=== PATIENT | female | born 1990 | race Caucasian/White ===

== ENCOUNTER 2018-04-11 20:59 | Emergency (ER) | payer BC ==
[2018-04-11] MEDS ORDERED: Lidocaine 1%* 5 ML VIAL INJ ONE (21:26)
--- NOTE | 2018-04-11 21:36 | UC ---
UC General HPI - HPI Summary HPI Summary: Patient accidentally caught her right hand on the edge of a sharp shelf while vacuuming her closet. This occurred just prior to arrival. She denies any foreign body sensation or limited range of motion. Her tetanus shot is up-to- date, within the past 10 years. She denies any other injuries offers no other complaints. - History of Current Complaint Stated Complaint: R HAND LACERATION Time Seen by Provider: 04/11/18 21:22 Hx Obtained From: Patient Onset/Duration: Sudden Onset Timing: Constant Aggravating: Nothing Associated Signs & Symptoms: Positive: Fever - Allergy/Home Medications Allergies/Adverse Reactions: Allergies Allergy/AdvReac Type Severity Reaction Status Date / Time No Known Allergies Allergy Verified 04/11/18 21:49 PMH/Surg Hx/FS Hx/Imm Hx Previously Healthy: Yes - Family History Known Family History: Positive: None - Social History Occupation: Employed Full-time Lives: With Family Substance Use Type: None - Immunization History Most Recent Influenza Vaccination: 05/19/13 Most Recent Tetanus Shot: 06/27/13 Most Recent Pneumonia Vaccination: unknown Vaccination Up to Date: Yes Review of Systems Constitutional: Negative Skin: Other - Cut on right hand Eyes: Negative ENT: Negative Respiratory: Negative Cardiovascular: Negative Gastrointestinal: Negative Genitourinary: Negative Motor: Negative Neurovascular: Negative Musculoskeletal: Negative Neurological: Negative Psychological: Negative Is Patient Immunocompromised?: No All Other Systems Reviewed And Are Negative: Yes Physical Exam Triage Information Reviewed: Yes Appearance: Well-Appearing Vital Signs Reviewed: Yes Eyes: Positive: Conjunctiva Clear ENT: Positive: Normal ENT inspection Neck: Positive: Supple Respiratory: Positive: Lungs clear, Normal breath sounds Cardiovascular: Positive: RRR, No Murmur Abdomen Description: Positive: Nontender, No Organomegaly, Soft Bowel Sounds: Positive: Present Musculoskeletal: Positive: ROM Intact Neurological: Positive: Alert Psychological: Positive: Normal Response To Family, Age Appropriate Behavior Skin Exam: Normal, Other - 2 cm laceration right dorsal hand. Fatty tissue seen. No active bleeding. And has full sensorivascular motor function. Course/Dx - Course Course Of Treatment: Procedure: Timeout done. Wound prep with Betadine. Local with 1% lidocaine 1 mL. Wound explored for foreign body as well as tendon and ligament damage and none was identified. Site irrigated with copious amounts of sterile sodium chloride. Wound reprepped with Betadine and draped in sterile fashion. Site closed with 5-0 nylon and 2 simple plus 1 horizontal mattress stitch. There was mild venous bleeding during procedure. Bleeding stopped post procedure. Hand had full vascular and motor function post procedure. Patient tolerated well. Sterile technique was used to repair the wound. Site covered with bacitracin and sterile gauze which was held in place with a bandage. - Differential Dx - Multi-Symptom Provider Diagnoses: 2cm laceration R hand Discharge - Sign-Out/Discharge Documenting (check all that apply): Patient Departure All imaging exams completed and their final reports reviewed: No Studies - Discharge Plan Condition: Stable Disposition: HOME Patient Education Materials: Care For Your Stitches (ED) Referrals: Murali Duran, SOA ENGINEER [Primary Care Provider] - Additional Instructions: SUTURES OUT IN 7-10 DAYS. - Billing Disposition and Condition Condition: STABLE Disposition: Home
[2018-04-11 21:47] VITALS: BP 136/81
== END 2018-04-11 22:07 | disposition home or self-care (01) ==
LOC: UCCORT 20:59
DX: S61.411A Laceration without foreign body of right hand, initial encounter (principal); W26.9XXA Contact with unspecified sharp object(s), initial encounter; Y93.E3 Activity, vacuuming; Y92.89 Other specified places as the place of occurrence of the external cause
CPT/HCPCS: 12001; 99211; G0463

== ENCOUNTER 2018-04-20 07:08 | Emergency (ER) | payer BC ==
[2018-04-20 07:22] VITALS: BP 125/75
--- NOTE | 2018-04-20 07:39 | UC ---
HPI Wound/Suture Re-check - HPI Summary HPI Summary: here for suture removal from her right hand sutures were placed here 9 days ago has no complaints , wound is healing well, no redness, no swelling, no discharge, mild itching - History Of Current Complaint Chief Complaint: UCGeneralIllness Stated Complaint: STITCH REMOVAL Time Seen by Provider: 04/20/18 07:30 Hx Obtained From: Patient Hx Last Menstrual Period: 04/07/18 Onset/Duration: Sudden Onset, Lasting Days - 9, Still Present Severity: Mild Pain Intensity: 0 Procedure Type: suture removal Surgery Date: 04/11/18 - Allergies/Home Medications Allergies/Adverse Reactions: Allergies Allergy/AdvReac Type Severity Reaction Status Date / Time No Known Allergies Allergy Verified 04/20/18 07:20 Home Medications: Home Medications Multivitamin [Multivitamins] 1 tab DAILY 04/20/18 [History Confirmed 04/20/18] PMH/Surg Hx/FS Hx/Imm Hx Previously Healthy: Yes - Surgical History Surgical History: None - Family History Known Family History: Positive: None Negative: Diabetes - Social History Alcohol Use: Occasionally Substance Use Type: None Smoking Status (MU): Never Smoked Tobacco - Immunization History Most Recent Influenza Vaccination: 05/19/13 Most Recent Tetanus Shot: 06/27/13 Most Recent Pneumonia Vaccination: unknown Vaccination Up to Date: Yes Review of Systems Constitutional: Negative Eyes: Negative ENT: Negative Respiratory: Negative Is Patient Immunocompromised?: No All Other Systems Reviewed And Are Negative: Yes Physical Exam Triage Information Reviewed: Yes Appearance: Well-Appearing, No Pain Distress, Well-Nourished Vital Signs: Initial Vital Signs Temp 98.9 F 04/20/18 07:21 Pulse 75 04/20/18 07:21 Resp 16 04/20/18 07:21 BP 125/75 04/20/18 07:21 Pulse Ox 100 04/20/18 07:21 Vital Signs Reviewed: Yes Eyes: Positive: Conjunctiva Clear ENT: Positive: Normal ENT inspection, Hearing grossly normal, Pharynx normal Neck exam: Normal Neck: Positive: Supple Respiratory: Positive: Chest non-tender, Lungs clear, Normal breath sounds Cardiovascular: Positive: RRR, No Murmur Skin: Positive: Other - laceration right hand , 1 cm in diameter, 3 sutures intact, wound is cland and dry , no erythema , no swelling, no discharge . sutures were removed Course/Dx - Differential Dx - Laceration/Wound Provider Diagnoses: laceration right hand. suture removal Discharge - Sign-Out/Discharge Documenting (check all that apply): Patient Departure All imaging exams completed and their final reports reviewed: No Studies - Discharge Plan Condition: Stable Disposition: HOME Patient Education Materials: Stitches Removal (ED) Referrals: Murali Duran SR COMMUNITY MANAGER [Primary Care Provider] - If Needed - Billing Disposition and Condition Condition: STABLE Disposition: Home
== END 2018-04-20 07:39 | disposition home or self-care (01) ==
LOC: UCCORT 07:08
DX: S61.411D Laceration without foreign body of right hand, subsequent encounter (principal)

== ENCOUNTER 2019-06-08 07:36 | Observation (INO) | payer BC ==
[~2019-06-08 07:36] MED LIST: Buffered Lidocaine 1% SYRIN* 1 ML/SYRINGE INTRADERM ONE; Lactated Ringers 1000 ML Bag* 1,000 ML IV SCH; Sodium Citrate/Citric Acid* 15 ML UDC PO ONE
[2019-06-08] MEDS ORDERED: Sodium Citrate/Citric Acid* 15 ML UDC ONE (07:42)
[2019-06-08] MEDS ORDERED: ceFOXitin 2 GM IVPREMIX* 2 GM/50 ML BAG ONE (07:42)
[2019-06-08 08:16] LABS: Hematocrit 42 % (35-47); Hemoglobin 14.3 g/dL (12.0-16.0); Mean Corpuscular HGB Conc 34 g/dL (31-36); Mean Corpuscular Hemoglobin 31 pg (27-31); Mean Corpuscular Volume 90 fL (80-97); Mean Platelet Volume 7.8 fL (7.4-10.4); Platelet Count 240 10^3/uL (150-450); Red Blood Count 4.68 10^6 /uL (3.70-4.87); Red Cell Distribution Width 12 % (10-15); White Blood Count 6.1 10^3/uL (3.5-10.8)
[2019-06-08] MEDS ORDERED: Bupivacaine 0.25% SDV PF* 10 ML VIAL INJ ONE (09:22)
[2019-06-08] MEDS ORDERED: fentaNYL* 50 MCG/ML 2 ML VIAL (100 MCG VIAL) ONE ×2 (09:44→13:42)
[2019-06-08] MEDS ORDERED: Midazolam* 1 MG/ML 2 ML VIAL (2 MG) ONE (09:44)
[2019-06-08] MEDS ORDERED: Rocuronium* 10 MG/ML VIAL ONE (09:49)
[2019-06-08] MEDS ORDERED: Lidocaine 2% PF * 5 ML VIAL ONE (09:50)
[2019-06-08] MEDS ORDERED: KETAMINE HCL* 50 MG/ML 10 ML VIAL ONE (10:01)
[2019-06-08] MEDS ORDERED: Dexamethasone IV* 4 MG/ML 1 ML (4 MG) ONE (10:08)
[2019-06-08] MEDS: Ketorolac INJ* 30 MG/ML 1 ML VIAL IV SCH ×2 (11:45→19:31)
[2019-06-08] MEDS ORDERED: DiMENhydriNATE IV* 50 MG/ML VIAL IV PUSH PRN (12:01)
[2019-06-08] MEDS ORDERED: Acetaminophen IV 1GM/100ML * 1,000 MG/100 ML VIAL IVPB ONE (12:01)
[2019-06-08] MEDS ORDERED: Naloxone* 0.4 MG/ML 1 ML VIAL IV PRN (12:01)
[2019-06-08] MEDS ORDERED: fentaNYL* 50 MCG/ML 2 ML VIAL (100 MCG VIAL) IV PRN (12:01)
[2019-06-08] MEDS ORDERED: Glycopyrrolate IV* 0.2 MG/ML 1 ML VIAL ONE (12:11)
[2019-06-08] MEDS ORDERED: DiMENhydriNATE IV* 50 MG/ML VIAL ONE (12:41)
[2019-06-08] MEDS ORDERED: Acetaminophen IV 1GM/100ML * 100 ML ONE (12:41)
[2019-06-08] MEDS ORDERED: oxyCODONE/Acetamin 5/325 MG* TAB PO PRN (12:42)
[2019-06-08] MEDS ORDERED: Lactated Ringers 1000 ML Bag* 1,000 ML IV SCH (13:00)
[2019-06-08] MEDS ORDERED: Scopolamine 1.5 mg* PATCH ONE (13:15)
[2019-06-08] MEDS ORDERED: Ondansetron INJ* 2 MG/ML VIAL IV PRN (15:23)
[2019-06-08] MEDS: oxyCODONE/Acetamin 5/325 MG* TAB PO PRN (15:42)
[2019-06-09] MEDS: Ketorolac INJ* 30 MG/ML 1 ML VIAL IV SCH ×2 (01:05→06:32)
--- NOTE | 2019-06-09 02:05 | OP ---
DATE OF OPERATION: 06/08/19 - ROOM #333 DATE OF : 86 SURGEON: Stacey Haque MD. CUSTOMER SALES SPECIALIST: Dr. Mcmillan. ANESTHESIOLOGIST: Dr. White. ANESTHESIA: General endotracheal. PRE-OP DIAGNOSES: Fibroid uterus and menorrhagia. POST-OP DIAGNOSES: Fibroid uterus and menorrhagia. OPERATIVE PROCEDURE: Laparoscopic supracervical hysterectomy and bilateral salpingectomy. ESTIMATED BLOOD LOSS: 100 cc. URINE OUTPUT: 600 cc. IV FLUIDS: 2000 cc lactated Ringer's. MATERIALS TO LAB: Uterus without cervix and bilateral fallopian tubes. INDICATIONS: This patient is a 29-year-old, 1, para 1, who had been using oral contraceptives for contraception and was having fairly normal light periods up until earlier this year. At that time, her periods suddenly became significantly heavier and more painful. An ultrasound was performed and the uterus was noted to be significantly enlarged with an approximately 7 to 8 cm posterior fibroid. The remainder of the pelvis appeared normal. The patient's options were discussed at length and the patient desired to have definitive surgery with a hysterectomy. After discussion of her options, we agreed to perform a laparoscopic supracervical hysterectomy and bilateral salpingectomy. Consent was signed. FINDINGS: Uterus with large posterior fundal fibroid, which was significantly larger than the uterus itself. Bilateral fallopian tubes and ovaries appeared normal. There were no other visible abnormalities in the pelvis. COMPLICATIONS: None. DESCRIPTION OF PROCEDURE: The risks, benefits, and alternatives were described to the patient and informed consent was obtained. The patient was taken to the operating room with IV running, where general anesthesia was induced and found to be adequate. The patient was prepped and draped in the normal sterile fashion in the high lithotomy position in [facility]. A time-out was performed. A Richards catheter was placed. A bivalve speculum was placed in the vagina and a uterine manipulator was placed through the cervix and into the uterine cavity without difficulty. This was kept in place with 5 cc of sterile water. The speculum was then removed. Attention was then turned to the abdomen and gloves were changed. The patient was placed in the low lithotomy position. 0.5% Marcaine was then injected into the umbilicus. An approximately 5-mm vertical skin incision was made in the umbilicus with the scalpel. Penetrating towel clamps were placed on either side of the incision for elevating the skin. A 5-mm bladeless trocar was then placed into the peritoneal cavity without difficulty. The abdomen was insufflated with carbon dioxide gas to a maximum pressure of 15 mmHg. There was no visible evidence of trauma or bleeding below the trocar insertion site. The patient was placed in the Trendelenburg position. On inspection of the pelvis, the uterus was quite large, both wide and extending posterior. 0.5% Marcaine was injected in the right and left lower quadrants just below the level of the umbilicus. 5-mm incisions were made with a scalpel and 5-mm bladeless trocars were inserted under direct visualization. The left fallopian tube was then lifted at the fimbriated end. A LigaSure was then used to take down the mesosalpinx extending from the distal to the proximal portion of the fallopian tube. The fallopian tube was then amputated a couple of centimeters from the cornua with the LigaSure. The fallopian tube was then removed through the laparoscopic port. The left round ligament was then coagulated and transected using the LigaSure. The anterior broad ligament was then taken down using the LigaSure. This incision was then extended across the anterior lower uterus to creat a bladder flap. The posterior broad ligament was then opened. The left uterine vessels were skeletonized as much as possible, then coagulated at multiple sites and transected. The same was then performed on the left side, which due to the rotation of the uterus from the large fibroid was somewhat easier to visualize. Again, the fallopian tube was removed through the laparoscopic port. When the uterine vessels on both sides had been coagulated, there appeared to be good blanching of the uterus and fibroid. A SupraLoop was prepared and placed into the abdomen. This was placed around the fundus and then brought down to the level of the upper cervix. The uterus was lifted with a tenaculum, and the laparoscope was used to well visualize the placement of the SupraLoop posteriorly as well as on both sides and then anteriorly. When all of this was visualized and it was noted that there was no nearby bowel, the SupraLoop was activated with 110 pure cut. The uterus was then amputated without difficulty. Bleeding was very light at that time. The uterus was placed in the upper abdomen so that any small areas of bleeding could be addressed and coagulated using the LigaSure. At that time, the umbilical laparoscope port was removed. The umbilical incision was extended using the scalpel after injecting additional Marcaine. The fascia was grasped and elevated, and this was incised in the midline approximately 4 cm. The uterus was visualized at the incision site. An Charlie retractor was then placed into the incision and tightened down. The uterus was grasped with a tenaculum and a specimen retrieval bag was placed into the incision. The uterus was then pushed into the retrieval bag and then the bag edges were able to be pulled up out of the incision. The uterus and fibroid were then morcellated in the bag using Paz scissors and without any spillage into the abdominal cavity. At that time, a GelPOINT single site device was placed on the Charlie retractor. The abdomen was then re-insufflated with carbon dioxide gas. The pelvis was copiously irrigated with saline, and after a small amount of additional coagulation with the LigaSure, there was excellent hemostasis present. Both ureters were visualized and appeared to be functioning normally. The entire operative site including both the cervical stump and the areas of dissection around the adnexa were then sprayed with Tisseel. There was excellent hemostasis present. The gas was then allowed to escape from the abdomen. The GelPOINT and Charlie retractor were removed. Both laparoscopic ports were also removed. The fascia in the midline was reapproximated using 0 Vicryl in a running fashion. The skin was then closed with 4-0 Monocryl in a subcuticular stitch. Both laparoscopic port sites were reapproximated using 4-0 Monocryl in the subcuticular stitch as well. DermaFlex skin adhesive was then placed over all 3 incisions. The patient was then placed into a supine position and allowed to awaken. The patient tolerated the procedure well. Sponge, lap, and needle counts were correct x2. [id number]/[facility] #: [id number] [facility]
[2019-06-09 07:14] LABS: ABS Lymphocytes 1.5 10^3/ul (1.0-4.8); ABS Neutrophils 9.6 10^3/ul (1.5-7.7); Eosinophil % 0.3 %; Hematocrit 35 % (35-47); Hemoglobin 11.8 g/dL (12.0-16.0); Lymphocyte % 12.2 %; Mean Corpuscular HGB Conc 34 g/dL (31-36); Mean Corpuscular Hemoglobin 31 pg (27-31); Mean Corpuscular Volume 90 fL (80-97); Mean Platelet Volume 8.2 fL (7.4-10.4); Platelet Count 224 10^3/uL (150-450); Red Blood Count 3.85 10^6 /uL (3.70-4.87); Red Cell Distribution Width 13 % (10-15); White Blood Count 12.1 10^3/uL (3.5-10.8)
[2019-06-09] MEDS: oxyCODONE/Acetamin 5/325 MG* TAB PO PRN (08:41)
[2019-06-09 11:30] VITALS: BP 99/49
--- NOTE | 2019-06-09 11:59 | DS ---
DISCHARGE SUMMARY: DATE OF ADMISSION: 06/08/19 DATE OF DISCHARGE: 06/09/19 HOSPITAL COURSE: This patient is a 29-year-old, 1, para 1 female who presented on the day of admission for her scheduled surgery. The patient had a history of menorrhagia and was found to have a large fibroid uterus. On the day of admission, she underwent an uncomplicated laparoscopic supracervical hysterectomy with bilateral salpingectomy. Estimated blood was 100 cc and the patient tolerated the procedure well. On postoperative day 1, the patient was ambulating and tolerating a regular diet, voiding spontaneously and having good pain control with oral pain medications. She was discharged to home in good condition on postoperative day 1. PHYSICAL EXAMINATION: Vital Signs: Temperature 99, heart rate 75, respiratory rate 16, oxygenation 99 % on room air, blood pressure 98/52. General: No acute distress, seated comfortably. Abdomen: Soft, mild tenderness to palpation around the incision sites. Incisions all clean, dry, and intact with skin glue in place. Bowel sounds positive in all 4 quadrants. LABORATORY DATA: Of note, postoperative hematocrit 35. DISCHARGE INSTRUCTIONS: Please see the patient's chart for written instructions that were provided and verbal and written instructions were provided at the bedside. FOLLOWUP: The patient will return in 1 week for an incision check and in about 3 to 4 weeks for a postoperative examination. DIAGNOSES: Subserosal fibroid, menorrhagia, status post laparoscopic supracervical hysterectomy, bilateral salpingectomy. CONDITION: Good. Discharged to home. MEDICATIONS: Please see medication reconciliation form for full medication list. [id number]/[facility] #: [id number] MTDD
== END 2019-06-09 11:50 | disposition home or self-care (01) ==
LOC: OR 07:36 → SSU 14:41
PROVIDERS: ADMIT Obstetrics & Gynecology; ATTEND Obstetrics & Gynecology
DX: D25.9 Leiomyoma of uterus, unspecified (principal); N92.0 Excessive and frequent menstruation with regular cycle
CPT/HCPCS: 36415; 81025; 85025; 85027; 86850; 86900; 86901; 88307; 96374; 96375; 96376; A9270-GY; C1776; G0378; J0694; J1100; J1240; J1885; J2250; J2405; J3010; J3490